=== PATIENT | male | born 1970 | race Caucasian/White ===

== ENCOUNTER 2016-11-17 13:57 | Emergency (ER) | payer MEDICAID ==
[2016-11-17] MEDS ORDERED: DEXAMETHASONE 10 MG/ML VIAL PO STA (17:08)
[2016-11-17] MEDS ORDERED: IPRATROPIUM/ALBUTEROL 3 ML NEB INH STA (17:08)
[2016-11-17] MEDS ORDERED: DEXAMETHASONE 10 MG/ML VIAL ONE (17:09)
[2016-11-17] MEDS ORDERED: CHERRY SYRUP 10 ML UDC PO ONE (17:09)
[2016-11-17] MEDS ORDERED: IPRATROPIUM/ALBUTEROL 3 ML NEB INH ONE (17:18)
[2016-11-17] MEDS ORDERED: OSELTAMIVIR 75 MG CAPSULE PO STA (18:06)
[2016-11-17] MEDS ORDERED: traMADol 50 MG TABLET PO STA (18:06)
[2016-11-17] MEDS ORDERED: OSELTAMIVIR 75 MG CAPSULE PO ONE (18:16)
[2016-11-17] MEDS ORDERED: traMADol 50 MG TABLET PO ONE (18:16)
== END 2016-11-17 18:00 | disposition home or self-care (01) ==
DX: J10.1 Influenza due to other identified influenza virus with other respiratory manifestations (principal); H66.003 Acute suppurative otitis media without spontaneous rupture of ear drum, bilateral; I10 Essential (primary) hypertension; F17.200 Nicotine dependence, unspecified, uncomplicated
CPT/HCPCS: 71020; 87275; 87276; 94640; 99283; 99284; A9270; J7620

== ENCOUNTER 2016-11-18 05:32 | Emergency (ER) | payer MEDICAID ==
[2016-11-18] MEDS ORDERED: HYDROmorphone 1 MG/ML SYRINGE IVP STA ×2 (07:26→09:12)
[2016-11-18] MEDS ORDERED: SODIUM CHLORIDE 0.9% 1,000 ML IV ONE ×2 (07:27→09:13)
[2016-11-18] MEDS ORDERED: KETAMINE 500 MG/10 ML VIAL IVP STA ×2 (07:27→09:12)
[2016-11-18] MEDS ORDERED: HYDROmorphone 1 MG/ML SYRINGE ONE ×2 (07:38→09:16)
[2016-11-18] MEDS ORDERED: KETAMINE 500 MG/10 ML VIAL ONE (07:39)
[2016-11-18] MEDS ORDERED: OSELTAMIVIR 75 MG CAPSULE PO STA (08:57)
[2016-11-18] MEDS ORDERED: OSELTAMIVIR 75 MG CAPSULE PO ONE (09:17)
== END 2016-11-18 09:50 | disposition home or self-care (01) ==
DX: E86.0 Dehydration (principal); G57.72 Causalgia of left lower limb; J10.1 Influenza due to other identified influenza virus with other respiratory manifestations; I10 Essential (primary) hypertension; K21.9 Gastro-esophageal reflux disease without esophagitis; Z87.442 Personal history of urinary calculi; F17.200 Nicotine dependence, unspecified, uncomplicated
CPT/HCPCS: 96374; 96375; 96376; 99283; 99284; A9270

== ENCOUNTER 2016-12-15 12:26 | Emergency (ER) | payer MEDICAID ==
[2016-12-15] MEDS ORDERED: HYDROmorphone 1 MG/ML SYRINGE IVP STA ×3 (13:23→15:21)
[2016-12-15] MEDS ORDERED: KETAMINE 500 MG/10 ML VIAL IVP STA ×2 (13:23→14:18)
[2016-12-15] MEDS ORDERED: SODIUM CHLORIDE 0.9% 1,000 ML IV ONE (13:23)
[2016-12-15] MEDS ORDERED: HYDROmorphone 1 MG/ML SYRINGE ONE ×3 (13:29→15:24)
[2016-12-15] MEDS ORDERED: KETAMINE 500 MG/10 ML VIAL ONE ×2 (13:30→14:30)
== END 2016-12-15 16:12 | disposition home or self-care (01) ==
DX: G90.522 Complex regional pain syndrome I of left lower limb (principal); I10 Essential (primary) hypertension; F17.200 Nicotine dependence, unspecified, uncomplicated
CPT/HCPCS: 96374; 96375; 96376; 99283; 99284; J1170

== ENCOUNTER 2016-12-16 17:37 | Emergency (ER) | payer MEDICAID ==
[2016-12-16] MEDS ORDERED: ACETAMINOPHEN 325 MG TABLET PO STA (18:27)
[2016-12-16] MEDS ORDERED: ACETAMINOPHEN 325 MG TABLET PO ONE (18:34)
== END 2016-12-16 18:40 | disposition home or self-care (01) ==
DX: G90.50 Complex regional pain syndrome I, unspecified (principal); I10 Essential (primary) hypertension; F17.200 Nicotine dependence, unspecified, uncomplicated
CPT/HCPCS: 99282; 99283; A9270

== ENCOUNTER 2016-12-19 | Emergency (ER) | payer MEDICAID | END 2016-12-19 03:03 | disposition home or self-care (01) ==

== ENCOUNTER 2017-03-19 09:21 | Emergency (ER) | payer MEDICAID ==
[2017-03-19 09:34] VITALS: BP 167/100
--- NOTE | 2017-03-19 12:03 | ED Physician Documentation ---
PD HPI LOWER EXT INJURY - Stated complaint Stated Complaint: L LEG INJURY - Chief complaint Chief Complaint: Ext Problem - History obtained from History obtained from: Patient - History of Present Illness PD HPI LOW EXT INJURY LOCATION: Left, Ankle Type of injury: Other (states feels like his achilles is torn again) Where injury occurred: Home Timing - onset: How many weeks ago (several) Timing - duration: Weeks (several) Timing - details: Gradual onset Pain level max: 5 Pain level now: 5 Improved by: Rest Worsened by: Moving, Palpating Associated symptoms: No: Weakness, Numbness, Tingling, Swelling Contributing factors: No: Anticoagulated, Prior ortho surgery, Prosthetic joint , Work related Similar symptoms before: Diagnosis (achilles tendon strain) Recently seen: Not recently seen Review of Systems Constitutional: denies: Fever Nose: denies: Rhinorrhea / runny nose, Congestion Respiratory: denies: Cough GI: denies: Nausea, Vomiting, Diarrhea Skin: denies: Rash Musculoskeletal: denies: Neck pain, Back pain Neurologic: denies: Headache PD PAST MEDICAL HISTORY - Past Medical History Cardiovascular: Hypertension, Other Respiratory: Shortness of breath Neuro: Head injury, Other Endocrine/Autoimmune: None GI: GERD : Kidney stones HEENT: Other Psych: Depression, Anxiety, Other Musculoskeletal: Other Derm: Other - Past Surgical History Past Surgical History: Yes General: Colonoscopy Ortho: Spine surgery Cardiovascular: Cardiac catheterization - Present Medications Home Medications: Ambulatory Orders Medication Instructions Recorded Confirmed Lisinopril 40 mg PO DAILY 09/08/16 12/16/16 Tramadol HCl [Tramadol HCl ER] 300 mg PO DAILY 09/08/16 12/16/16 amLODIPine [Norvasc] 10 mg PO DAILY 09/08/16 12/16/16 Melatonin 1 tab PO DAILY 10/04/16 12/16/16 traMADol [Ultram] 100 mg PO Q6H PRN #20 tablet 10/17/16 12/16/16 Tramadol HCl 50 mg PO Q6H PRN #15 tablet 11/10/16 12/16/16 oxyCODONE [Roxicodone] 5 mg PO Q4-6H PRN #4 tablet 12/15/16 12/16/16 - Allergies Allergies/Adverse Reactions: Allergies Allergy/AdvReac Type Severity Reaction Status Date / Time diphenhydramine Allergy Unknown Verified 12/19/16 02:44 gabapentin Allergy Unknown Verified 12/19/16 02:44 NSAIDS (Non-Steroidal AdvReac Unknown Verified 12/19/16 02:44 Anti-Inflamma - Social History Does the pt smoke?: Yes Smoking Status: Light tobacco smoker Does the pt drink ETOH?: No Does the pt have substance abuse?: No - Immunizations Immunizations are current?: Yes - POLST Patient has POLST: Yes PD ED PE NORMAL - Vitals Vital signs reviewed: Yes - General General: Alert and oriented X 3, No acute distress - Derm Derm: Warm and dry - Extremities Extremities: Other (L achilles - tenderness along the tendon sheath. NVI. normal dorsiflexion and plantar flexion of the foot. negative dahl's test) - Neuro Neuro: Alert and oriented X 3 - Psych Psych: Normal mood, Normal affect Results - Vitals Vitals: Vital Signs - 24 hr 03/19/17 09:30 Temperature 36.6 C Heart Rate 86 Respiratory 18 Rate Blood Pressure 167/100 H O2 Saturation 98 Oxygen O2 Source Room air PD MEDICAL DECISION MAKING - ED course Complexity details: considered differential, d/w patient ED course: Patient is a 46-year-old gentleman who presents to the emergency department complaining of pain in the Achilles tendon. Placed in a walking boot for comfort. We will have him utilize Tylenol at home for pain. He will follow-up with orthopedics for further evaluation and care. No evidence of tendon rupture. Patient counseled regarding signs and symptoms for which I believe and urgent re-evaluation would be necessary. Patient with good understanding of and agreement to plan and is comfortable going home at this time This document was made in part using voice recognition software. While efforts are made to proofread this document, sound alike and grammatical errors may occur. Departure - Departure Disposition: 01 Home, Self Care Clinical Impression: Achilles tendinitis Qualifiers: Laterality: left Qualified Code(s): M76.62 - Achilles tendinitis, left leg Condition: Good Instructions: Achilles Tendonitis Follow-Up: [facility] [Provider Group] - Within 1 week Comments: Wear the boot as needed for comfort. Follow up with orthopedics for re- evaluation Your blood pressure was elevated today on check in to the emergency department. This does not mean that you have hypertension, it is a common phenomenon to check into the emergency department and have elevated blood pressure. I recommend that you see your primary care physician within the week to have it rechecked when you're feeling better.
== END 2017-03-19 12:12 | disposition home or self-care (01) ==
LOC: ED 09:21
DX: M76.62 Achilles tendinitis, left leg (principal); X50.9XXA Other and unspecified overexertion or strenuous movements or postures, initial encounter; Y92.019 Unspecified place in single-family (private) house as the place of occurrence of the external cause; I10 Essential (primary) hypertension; K21.9 Gastro-esophageal reflux disease without esophagitis; Z87.442 Personal history of urinary calculi; F17.200 Nicotine dependence, unspecified, uncomplicated
CPT/HCPCS: 99282; 99283

== ENCOUNTER 2017-08-03 10:12 | Emergency (ER) | payer MEDICAID ==
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
[2017-08-03 14:03] VITALS: BP 142/79
--- NOTE | 2017-08-03 14:12 | XRAY Preliminary Report ---
Exam: XR Chest 2 View PA/LAT IMPRESSION: No focal consolidation. [facility] SITE ID: [id number]
--- NOTE | 2017-08-03 14:15 | XRAY Preliminary Report ---
Exam: XR Lumbar Spine 2 View IMPRESSION: 1. Mild anterior wedging of the T12 and L1 vertebral bodies. 2. Mild degenerative disk disease at L4-L5. [facility] SITE ID: [id number]
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
== END 2017-08-03 14:03 | disposition home or self-care (01) ==
LOC: ED 10:12
DX: R07.9 Chest pain, unspecified (principal); M54.5 Low back pain; W22.09XA Striking against other stationary object, initial encounter; Y93.55 Activity, bike riding; Y92.410 Unspecified street and highway as the place of occurrence of the external cause; Z87.891 Personal history of nicotine dependence
CPT/HCPCS: 71020; 72100; 93005; 99283

== ENCOUNTER 2017-10-14 11:21 | Outpatient (CLI) | payer MEDICAID | END 2017-10-14 11:22 | disposition EMS.NT | LOC: EMS 11:21 | PROVIDERS: ATTEND Surgery | DX: Z03.89 Encounter for observation for other suspected diseases and conditions ruled out (principal) ==

== ENCOUNTER 2017-12-28 07:34 | Outpatient (CLI) | payer MEDICAID | END 2017-12-28 07:35 | disposition critical access hospital (66) | LOC: EMS 07:34 | PROVIDERS: ATTEND Surgery | DX: M54.5 Low back pain (principal); M25.512 Pain in left shoulder; V13.4XXA Pedal cycle driver injured in collision with car, pick-up truck or van in traffic accident, initial encounter; Y93.55 Activity, bike riding; Y92.413 State road as the place of occurrence of the external cause | CPT/HCPCS: A0425; A0429 ==

== ENCOUNTER 2017-12-28 07:51 | Emergency (ER) | payer MEDICAID ==
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
[2017-12-28 08:03] VITALS: BP 158/97
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
--- NOTE | 2017-12-28 08:49 | XRAY Preliminary Report ---
Exam: XR HIP W/PELVIS 2-3V LT IMPRESSION: Normal pelvis and left hip radiography. [facility] SITE ID: [id number]
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
== END 2017-12-28 10:22 | disposition home or self-care (01) ==
LOC: EDUNIT# → ED 07:51
DX: S20.212A Contusion of left front wall of thorax, initial encounter (principal); S70.02XA Contusion of left hip, initial encounter; V03.10XA Pedestrian on foot injured in collision with car, pick-up truck or van in traffic accident, initial encounter; Y92.488 Other paved roadways as the place of occurrence of the external cause; I10 Essential (primary) hypertension; K21.9 Gastro-esophageal reflux disease without esophagitis; Z87.442 Personal history of urinary calculi; Z87.891 Personal history of nicotine dependence
CPT/HCPCS: 71046; 99283

== ENCOUNTER 2018-01-04 15:15 | Emergency (ER) | payer MEDICAID ==
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
[2018-01-04] MEDS ORDERED: METHOCARBAMOL 500 MG TABLET PO STA (16:37)
[2018-01-04] MEDS ORDERED: DEXAMETHASONE 10 MG/ML VIAL PO STA (16:37)
[2018-01-04] MEDS ORDERED: CHERRY SYRUP 10 ML UDC PO ONE (16:55)
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
[2018-01-04 17:52] VITALS: BP 131/93
== END 2018-01-04 18:15 | disposition home or self-care (01) ==
LOC: ED 15:15
DX: M54.30 Sciatica, unspecified side (principal); I10 Essential (primary) hypertension
CPT/HCPCS: 72131; 99283; A9270

== ENCOUNTER 2018-03-01 17:44 | Emergency (ER) | payer MEDICAID ==
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
[2018-03-01 18:28] LABS: BASOPHILS % (AUTO) 0.3 %; EOSINOPHILS % (AUTO) 0.2 %; HGB - HEMOGLOBIN 15.9 g/dL (14.0-18.0); LYMPHOCYTES # (AUTO) 1.8 10^3/uL (1.5-3.5); LYMPHOCYTES % (AUTO) 18.5 %; MEAN CORPUSCULAR HEMOGLOBIN 30.4 pg (27.0-31.0); MEAN CORPUSCULAR HGB CONC 34.1 g/dL (32.0-36.0); MEAN CORPUSCULAR VOLUME 89.3 fL (80.0-94.0); MEAN PLATELET VOLUME 8.1 fL (7.4-11.4); MONOCYTES # (AUTO) 0.4 10^3/uL (0.0-1.0); MONOCYTES % (AUTO) 4.4 %; NEUTROPHILS # (AUTO) 7.5 10^3/uL (1.5-6.6); NEUTROPHILS % (AUTO) 76.6 %; PLT - PLATELET COUNT 183 10^3/uL (130-450); RED BLOOD COUNT 5.24 10^6/uL (4.70-6.10); RED CELL DISTRIBUTION WIDTH 12.8 % (12.0-15.0); WHITE BLOOD COUNT 9.8 x10^3/uL (4.8-10.8)
[2018-03-01] MEDS ORDERED: DEXAMETHASONE 10 MG/ML VIAL IVP STA (18:33)
[2018-03-01 18:39] LABS: ALBUMIN 4.6 g/dL (3.2-5.5); ALBUMIN/GLOBULIN RATIO 1.6 (1.0-2.2); BILIRUBIN,TOTAL 0.7 mg/dL (0.2-1.0); CALCIUM 9.1 mg/dL (8.5-10.3); CREATININE 0.7 mg/dL (0.6-1.2); TOTAL PROTEIN 7.5 g/dL (6.7-8.2)
[2018-03-01] MEDS ORDERED: SODIUM CHLORIDE 0.9% 1,000 ML IV ONE (19:40)
[2018-03-01] MEDS ORDERED: ONDANSETRON 4 MG/2 ML VIAL IVP STA (20:04)
[2018-03-01 20:21] VITALS: BP 138/87
[2018-03-01] MEDS ORDERED: KETOROLAC 60 MG/2 ML VIAL IVP STA (20:23)
== END 2018-03-01 20:42 | disposition short-term general hospital (02) ==
LOC: ED 17:44
DX: G83.4 Cauda equina syndrome (principal); I10 Essential (primary) hypertension
CPT/HCPCS: 36415; 51798; 80053; 83690; 85025; 96361; 96374; 96375; 99283; 99284

== ENCOUNTER 2018-03-01 20:43 | Outpatient (CLI) | payer MEDICAID | END 2018-03-01 20:44 | disposition short-term general hospital (02) | LOC: EMS 20:43 | PROVIDERS: ATTEND Surgery | DX: R15.9 Full incontinence of feces (principal); R32 Unspecified urinary incontinence; M54.5 Low back pain | CPT/HCPCS: A0170; A0425; A0426 ==

== ENCOUNTER 2018-03-27 10:52 | Emergency (ER) | payer MEDICAID ==
[2018-03-27 11:00] VITALS: BP 133/93
[2018-03-27 11:38] LABS: BASOPHILS % (AUTO) 0.2 %; EOSINOPHILS # (AUTO) 0.1 10^3/uL (0.0-0.7); EOSINOPHILS % (AUTO) 2.2 %; HGB - HEMOGLOBIN 16.3 g/dL (14.0-18.0); LYMPHOCYTES # (AUTO) 0.5 10^3/uL (1.5-3.5); LYMPHOCYTES % (AUTO) 10.1 %; MEAN CORPUSCULAR HEMOGLOBIN 30.8 pg (27.0-31.0); MEAN CORPUSCULAR HGB CONC 34.3 g/dL (32.0-36.0); MEAN CORPUSCULAR VOLUME 89.6 fL (80.0-94.0); MEAN PLATELET VOLUME 8.5 fL (7.4-11.4); MONOCYTES # (AUTO) 0.6 10^3/uL (0.0-1.0); MONOCYTES % (AUTO) 11.6 %; NEUTROPHILS % (AUTO) 75.9 %; PLT - PLATELET COUNT 133 10^3/uL (130-450); RED CELL DISTRIBUTION WIDTH 12.5 % (12.0-15.0); WHITE BLOOD COUNT 5.2 x10^3/uL (4.8-10.8)
[2018-03-27 11:44] LABS: BILIRUBIN,URINE NEGATIVE (NEGATIVE); GLUCOSE, URINE (UA) NEGATIVE (NEGATIVE); KETONES,URINE (UA) NEGATIVE (NEGATIVE); LEUKOCYTE ESTERASE, URINE NEGATIVE (NEGATIVE); NITRITE,URINE NEGATIVE (NEGATIVE); OCCULT BLOOD,URINE NEGATIVE (NEGATIVE); PROTEIN,URINE NEGATIVE (NEGATIVE); UROBILINOGEN,URINE 0.2 (NORMAL) E.U./dL (NORMAL)
[2018-03-27 11:45] LABS: CLARITY,URINE CLEAR (CLEAR)
[2018-03-27 11:48] LABS: ALBUMIN 4.2 g/dL (3.2-5.5); ALBUMIN/GLOBULIN RATIO 1.4 (1.0-2.2); BILIRUBIN,TOTAL 0.9 mg/dL (0.2-1.0); CALCIUM 8.9 mg/dL (8.5-10.3); CREATININE 0.8 mg/dL (0.6-1.2); TOTAL PROTEIN 7.3 g/dL (6.7-8.2)
[2018-03-27] MEDS ORDERED: cefTRIAXone 1 GM in SODIUM CHLORIDE 0.9% MINIBAG 100 ML IV STA (11:58)
[2018-03-27] MEDS ORDERED: SODIUM CHLORIDE 0.9% 1,000 ML IV ONE (11:58)
[2018-03-27] MEDS ORDERED: DEXAMETHASONE 10 MG/ML VIAL IVP STA (11:58)
--- NOTE | 2018-03-27 12:02 | ED Physician Documentation ---
PD HPI URI - Stated complaint Stated Complaint: FEVER,BODY ACHE,COUGH - Chief complaint Chief Complaint: Neuro - History obtained from History obtained from: Patient, Family - History of Present Illness Timing - onset: How many days ago (3) Timing duration: Days (3) Timing details: Gradual onset, Still present Associated symptoms: Chills, Sweats, Ear pain, Nasal congestion, Rhinorrhea, Productive cough Contributing factors: Sick contact Improves by: Rest, Medication Worsened by: Activity Similar symptoms before: Diagnosis (OM) Recently seen: Other - Additional information Additional information: 47-year-old male with a history of CRPS has had a recent trip down to [facility] for evaluation of urinary and fecal incontinence which has nearly resolved. Over the past 3 days he has developed upper respiratory symptoms including a cough nasal congestion production of phlegm and left ear pain. Review of Systems Constitutional: reports: Chills, Sweats. denies: Fever Eyes: denies: Decreased vision Ears: reports: Ear pain Nose: reports: Rhinorrhea / runny nose, Congestion Throat: reports: Sore throat Cardiac: denies: Chest pain / pressure, Palpitations Respiratory: reports: Cough. denies: Dyspnea GI: denies: Abdominal Pain, Nausea, Vomiting : denies: Dysuria PD PAST MEDICAL HISTORY - Past Medical History Past Medical History: Yes Cardiovascular: Hypertension, Other Respiratory: Shortness of breath Endocrine/Autoimmune: None GI: GERD : Kidney stones HEENT: Other Psych: Depression, Anxiety, Other Musculoskeletal: Other Derm: Other - Past Surgical History Past Surgical History: Yes General: Colonoscopy Ortho: Spine surgery Cardiovascular: Cardiac catheterization - Present Medications Home Medications: Ambulatory Orders Medication Instructions Recorded Confirmed Azithromycin [Zithromax] 250 mg PO DAILY #6 tablet 03/27/18 Cholecalciferol [Vitamin D3] unit 03/27/18 Hydrochlorothiazide mg PO 03/27/18 Maoi 03/27/18 - Allergies Allergies/Adverse Reactions: Allergies Allergy/AdvReac Type Severity Reaction Status Date / Time diphenhydramine Allergy Unknown Verified 03/27/18 11:00 gabapentin Allergy Unknown Verified 03/27/18 11:00 NSAIDS (Non-Steroidal AdvReac Unknown Verified 03/27/18 11:00 Anti-Inflamma - Social History Does the pt smoke?: No Smoking Status: Never smoker Does the pt drink ETOH?: No Does the pt have substance abuse?: No - Immunizations Immunizations are current?: Yes - POLST Patient has POLST: Yes PD ED PE NORMAL - Vitals Vital signs reviewed: Yes (hypertensive ) - General General: Alert and oriented X 3, No acute distress, Well developed/nourished - HEENT HEENT: Atraumatic, PERRL, EOMI, Other (The right TM is minimally inflammed and the left is inflammed with rounding of the umbo. ) - Neck Neck: Supple, no meningeal sign, No bony TTP - Cardiac Cardiac: RRR, No murmur - Respiratory Respiratory: No respiratory distress, Clear bilaterally - Abdomen Abdomen: Soft, Non tender - Back Back: No CVA TTP, No spinal TTP - Derm Derm: Normal color, Warm and dry, No rash - Extremities Extremities: No deformity, No edema - Neuro Neuro: No motor deficit, No sensory deficit Eye Opening: Spontaneous Motor: Obeys Commands Verbal: Oriented GCS Score: 15 - Psych Psych: Normal mood, Normal affect Results - Vitals Vitals: Vital Signs - 24 hr 03/27/18 10:54 Temperature 37.4 C Heart Rate 37 L Respiratory 18 Rate Blood Pressure 133/93 H O2 Saturation 99 Oxygen O2 Source Room air - Labs Labs: Laboratory Tests 03/27/18 03/27/18 03/27/18 11:30 11:30 11:30 WBC 5.2 RBC 5.30 Hgb 16.3 Hct 47.5 MCV 89.6 MCH 30.8 MCHC 34.3 RDW 12.5 Plt Count 133 MPV 8.5 Neut # 4.0 Lymph # 0.5 L Bland # 0.6 Eos # 0.1 Baso # 0.0 Absolute Nucleated RBC 0.00 Nucleated RBC % 0.0 Sodium 133 L Potassium 3.8 Chloride 101 Carbon Dioxide 25 Anion Gap 7.0 BUN 14 Creatinine 0.8 Estimated GFR (MDRD) 103 Glucose 99 Calcium 8.9 Total Bilirubin 0.9 AST 29 ALT 30 Alkaline Phosphatase 62 Total Protein 7.3 Albumin 4.2 Globulin 3.1 Albumin/Globulin Ratio 1.4 Lipase 32 Urine Color YELLOW Urine Clarity CLEAR Urine pH 7.0 Ur Specific [place] 1.015 Urine Protein NEGATIVE Urine Glucose (UA) NEGATIVE Urine Ketones NEGATIVE Urine Occult Blood NEGATIVE Urine Nitrite NEGATIVE Urine Bilirubin NEGATIVE Urine Urobilinogen 0.2 (NORMAL) Ur Leukocyte Esterase NEGATIVE Ur Microscopic Review NOT INDICATED Urine Culture Comments NOT INDICATED Procedures - IVC sono (time) 1200 Bedside IVC sono: IVC measures (cm) (1.21), IVC collapsed c insp (cm) (complete) , Dehydration (est 1 liter deficit) PD MEDICAL DECISION MAKING - ED course Complexity details: reviewed old records, reviewed results, re-evaluated patient , considered differential, d/w patient ED course: 47-year-old male with a history of CRPS is developed an upper respiratory tract infection which he has had previously and which usually does cause a problem with his CRPS. He has otitis on examination and he is treated aggressively for this with the use of dexamethasone and Rocephin. He also appears mildly dehydrated and is given intravenous saline. Departure - Departure Disposition: 01 Home, Self Care Clinical Impression: Dehydration Otitis media Qualifiers: Otitis media type: suppurative Chronicity: acute Laterality: left Recurrence: not specified as recurrent Spontaneous tympanic membrane rupture: without spontaneous rupture Qualified Code(s): H66.002 - Acute suppurative otitis media without spontaneous rupture of ear drum, left ear Condition: Stable Instructions: ED Otitis Media Acute Adult, ED Dehydration Follow-Up: Your, doctor [Other] Prescriptions: Azithromycin [Zithromax] 250 mg PO DAILY #6 tablet
== END 2018-03-27 13:16 | disposition home or self-care (01) ==
LOC: ED 10:52
DX: H66.002 Acute suppurative otitis media without spontaneous rupture of ear drum, left ear (principal); J06.9 Acute upper respiratory infection, unspecified; E86.0 Dehydration; I10 Essential (primary) hypertension; G90.50 Complex regional pain syndrome I, unspecified
CPT/HCPCS: 36415; 80053; 81001; 81003; 83690; 85025; 87086; 96365; 96375; 99283; 99284

== ENCOUNTER 2018-06-21 14:07 | Emergency (ER) | payer MEDICAID | END 2018-06-21 14:45 | disposition left against medical advice (07) | LOC: ED 14:07 | DX: Z53.21 Procedure and treatment not carried out due to patient leaving prior to being seen by health care provider (principal) ==

== ENCOUNTER 2018-06-22 08:00 | Emergency (ER) | payer MEDICAID ==
[2018-06-22] MEDS ORDERED: LIDOCAINE PATCH 5% TOP PRN (08:25)
[2018-06-22] MEDS ORDERED: ACETAMINOPHEN 325 MG TABLET PO STA (08:25)
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
--- NOTE | 2018-06-22 10:10 | Ultrasound Report ---
Procedure Date: 06/22/2018 Accession Number: [id number] / [id number] Procedure: US - Duplex Ext Veins Right CPT Code: FULL RESULT: EXAM: Duplex Ext Veins Right DATE: 06/22/2018 9:53 AM CLINICAL HISTORY: calf and popliteal pain slight swelling COMPARISON: None. TECHNIQUE: Real-time sonographic vascular imaging was performed by the blacksmith assistant through the lower extremities utilizing both color-flow and Doppler spectral analysis. Multiple warehouse representative static images were saved for review. FINDINGS: Right: Common Femoral Vein (CFV): Normal. [Profunda Femoral Vein (PFV): Normal. Superficial Femoral Vein (SFV) Prox: Normal. Superficial Femoral Vein (SFV) Mid: Normal. Superficial Femoral Vein (SFV) Dist: Normal. Popliteal Vein: Normal. Posterior Tibial Veins: Normal. Peroneal Veins: Normal. IMPRESSION: Normal. No evidence for deep venous thrombosis. RADIA
[2018-06-22 10:43] VITALS: BP 128/74
== END 2018-06-22 10:43 | disposition home or self-care (01) ==
LOC: ED 08:00
DX: S86.811A Strain of other muscle(s) and tendon(s) at lower leg level, right leg, initial encounter (principal); X58.XXXA Exposure to other specified factors, initial encounter; I10 Essential (primary) hypertension; F43.10 Post-traumatic stress disorder, unspecified
CPT/HCPCS: 93971; 99283; A9270

== ENCOUNTER 2018-11-17 07:25 | Outpatient (CLI) | payer OTHER ==
--- NOTE | 2018-11-17 09:38 | Ultrasound Report ---
Reason: ABNORMAL LIVER FUNCTION TESTS Procedure Date: 11/17/2018 Accession Number: [id number] / [id number] Procedure: US - Abdomen Limited CPT Code: FULL RESULT: EXAM: ABDOMEN ULTRASOUND LIMITED, RUQ EXAM DATE: 11/17/2018 08:40 AM. CLINICAL HISTORY: ABNORMAL LIVER FUNCTION TESTS. COMPARISON: None. TECHNIQUE: Real-time scanning was performed with static images obtained. FINDINGS: Liver: Echogenic heterogeneous echotexture with geographic relatively hypoechoic areas around the gallbladder fossa consistent with focal fatty sparing in the setting of hepatic steatosis. Right lobe measures at least 14.6 cm. Main portal vein flow: Hepatopetal. Gallbladder: Normal. No stones, wall thickening, or sonographic Mcmahan's sign. Biliary System: CBD measures 4 mm. No intrahepatic or extrahepatic ductal dilatation. Other: Right kidney measures 12.3 cm in maximal sagittal dimension and demonstrates no mel hydronephrosis, calculi or suspicious mass. IMPRESSION: Hepatic steatosis. RADIA
== END 2018-11-17 07:26 | disposition home or self-care (01) ==
LOC: DI 07:25
PROVIDERS: ATTEND Internal Medicine
DX: K76.0 Fatty (change of) liver, not elsewhere classified (principal)
CPT/HCPCS: 76705

== ENCOUNTER 2019-04-10 08:32 | Emergency (ER) | payer OTHER ==
[2019-04-10 08:40] VITALS: BP 151/95
[2019-04-10] MEDS ORDERED: KETOROLAC 30 MG/ML VIAL IVP STA (08:52)
[2019-04-10] MEDS ORDERED: SODIUM CHLORIDE 0.9% 1,000 ML IV ONE (08:52)
[2019-04-10] MEDS ORDERED: PROCHLORPERAZINE 10 MG/2 ML VIAL IVP STA (08:55)
[2019-04-10] MEDS ORDERED: DEXAMETHASONE 10 MG/ML VIAL IVP STA (08:57)
[2019-04-10] MEDS ORDERED: KETAMINE 500 MG/10 ML VIAL IVP STA (08:58)
--- NOTE | 2019-04-10 09:01 | ED Physician Documentation ---
PD HPI HEADACHE - Stated complaint Stated Complaint: HEADACHE - Chief complaint Chief Complaint: Neuro - History obtained from History obtained from: Patient, Family - History of Present Illness Timing - onset: Enter time (299), Today Timing - onset during: Sleep Timing - duration: Hours Timing - details: Abrupt onset, Still present Location: Front Quality: Throbbing Associated symptoms: Nausea, Vision changes. No: Fever, Stiff neck, Vomiting, Weakness, Numbness, Syncope, Seizure, Eye pain Improved by: Rest, Dark room Worsened by: Light, Noise, Moving Contributing factors: No: Anticoagulated Similar symptoms before: Diagnosis (migraine) Recently seen: Not recently seen - Additional information Additional information: 48-year-old male well known to this emergency department for a history of complex regional pain syndrome has had excellent relief of his complex regional pain syndrome symptoms for the past year after receiving ketamine infusions in the emergency department numerous times. He states his symptoms are dramatically improved and that he is only now beginning to have some recurrence of symptoms in his legs and he is scheduled to go into the ketamine infusion clinic at the pain clinic. This morning he awoke at 3:00 in the morning with a headache, ringing in his ears, nausea and vision changes to include blurring of his vision. He has had all the symptoms previously with migraine headache and he has not had migraines for the past 5 years. Review of Systems Constitutional: denies: Fever, Chills, Fatigue Eyes: reports: Photophobia. denies: Decreased vision Ears: reports: Tinnitus/ringing. denies: Ear pain Nose: denies: Rhinorrhea / runny nose, Congestion Throat: denies: Sore throat Cardiac: denies: Chest pain / pressure, Palpitations Respiratory: denies: Dyspnea, Cough GI: reports: Nausea. denies: Abdominal Pain, Vomiting : denies: Dysuria, Frequency PD PAST MEDICAL HISTORY - Past Medical History Cardiovascular: Hypertension, Other Respiratory: Shortness of breath Endocrine/Autoimmune: None GI: GERD : Kidney stones HEENT: Other Psych: Depression, Anxiety, Other Musculoskeletal: Other Derm: Other - Past Surgical History Past Surgical History: Yes General: Colonoscopy Ortho: Spine surgery Cardiovascular: Cardiac catheterization - Present Medications Home Medications: Ambulatory Orders Medication Instructions Recorded Confirmed Azithromycin [Zithromax] 250 mg PO DAILY #6 tablet 03/27/18 Cholecalciferol [Vitamin D3] unit 03/27/18 Hydrochlorothiazide mg PO 03/27/18 Maoi 03/27/18 - Allergies Allergies/Adverse Reactions: Allergies Allergy/AdvReac Type Severity Reaction Status Date / Time diphenhydramine Allergy Unknown Verified 04/10/19 08:40 gabapentin Allergy Unknown Verified 04/10/19 08:40 NSAIDS (Non-Steroidal AdvReac Unknown Verified 04/10/19 08:40 Anti-Inflamma - Social History Does the pt smoke?: No Smoking Status: Never smoker Does the pt drink ETOH?: No Does the pt have substance abuse?: No - Immunizations Immunizations are current?: Yes - POLST Patient has POLST: Yes PD ED PE NORMAL - Vitals Vital signs reviewed: Yes (hypertensive) - General General: Alert and oriented X 3, Well developed/nourished, Other (wearing dark glasses in a darkened room ) - HEENT HEENT: Atraumatic, PERRL, EOMI, Ears normal, Moist mucous membranes, Pharynx benign - Neck Neck: Supple, no meningeal sign, No bony TTP - Cardiac Cardiac: RRR, Other (2/6 holosystolic murmer at LSB) - Respiratory Respiratory: No respiratory distress, Clear bilaterally - Abdomen Abdomen: Soft, Non tender - Back Back: No CVA TTP, No spinal TTP - Derm Derm: Normal color, Warm and dry, No rash - Extremities Extremities: No deformity, No edema - Neuro Neuro: Alert and oriented X 3, commercial finance analyst 2-12 intact, No motor deficit, No sensory deficit, Normal speech Eye Opening: Spontaneous Motor: Obeys Commands Verbal: Oriented GCS Score: 15 - Psych Psych: Normal mood, Normal affect Results - Vitals Vitals: Vital Signs - 24 hr 04/10/19 08:35 Temperature 36.7 C Heart Rate 84 Respiratory 18 Rate Blood Pressure 151/95 H O2 Saturation 98 Oxygen O2 Source Room air PD MEDICAL DECISION MAKING - ED course Complexity details: reviewed old records, reviewed results, re-evaluated patient, considered differential, d/w patient, d/w family ED course: 48-year-old male with a migraine headache and a prior history of complex regional pain syndrome has symptoms typical for him for migraine. In the past he has had issues with intravenous Benadryl and this is left out of the migraine cocktail this morning. He is administered Compazine, Toradol, dexamethasone, ketamine and 1 L of saline. Departure - Departure Disposition: Home, Self Care Clinical Impression: Migraine Qualifiers: Migraine type: without aura Status migrainosus presence: without status migrainosus Intractability: not intractable Qualified Code(s): G43.009 - Migraine without aura, not intractable, without status migrainosus Condition: Stable Instructions: ED Headache Migraine Follow-Up: Mathieu Souza MD [Primary Care Provider] -
== END 2019-04-10 10:25 | disposition home or self-care (01) ==
LOC: ED 08:32
DX: G43.009 Migraine without aura, not intractable, without status migrainosus (principal); I10 Essential (primary) hypertension
CPT/HCPCS: 96361; 96374; 99283

== ENCOUNTER 2019-08-03 08:45 | Outpatient (CLI) | payer OTHER | END 2019-08-03 08:46 | disposition short-term general hospital (02) | LOC: EMS 08:45 | PROVIDERS: ATTEND Surgery | DX: M54.5 Low back pain (principal); R32 Unspecified urinary incontinence | CPT/HCPCS: A0425; A0427 ==

== ENCOUNTER 2020-11-06 15:02 | Outpatient (CLI) | payer OTHER ==
--- NOTE | 2020-11-06 16:55 | Ultrasound Report ---
PROCEDURE: Testicle INDICATIONS: GROIN MASS TECHNIQUE: Real-time scanning was performed of the scrotum and testicles, with image documentation. Color and p ulse Doppler interrogation was performed of both testicles. COMPARISON: None. FINDINGS: Right: Testicle is normal in size at 5.6 x 3.1 x 3.4 cm, and homogenous in echotexture. Epididymis is normal in overall size and morphology, noting small cysts at the epididymal tail measuring 8 x 6 x 8 mm. Overlying scrotal skin is normal in thickness. No varicocele. Small hydrocele is present. Left: Testicle is normal in size at 5.4 x 3.0 x 3.1 cm, and homogeneous in echotexture. Epididymis is normal in overall size and morphology. No hydrocele or varicoceles. Overlying scrotal skin is no rmal in thickness. Doppler: Color and pulse Doppler demonstrate normal and symmetric arterial flow in both testicles. IMPRESSION: 1. Left epididymal cysts. 2. Small right hydrocele. 3. No abnormality at the area of palpable concern. Reviewed by: Eugenie Ramos MD on 11/06/2020 4:54 PM PST Approved by: Eugenie Ramos MD on 11/06/2020 4:54 PM PST Station ID: [id number]
== END 2020-11-06 15:03 | disposition home or self-care (01) ==
LOC: DI 15:02
PROVIDERS: ATTEND Nurse Practitioner Family
DX: N50.3 Cyst of epididymis (principal); N43.3 Hydrocele, unspecified

== ENCOUNTER 2022-04-10 07:24 | Outpatient (CLI) | payer OTHER, MEDICAID | END 2022-04-10 07:25 | disposition home or self-care (01) | LOC: LAB.N 07:24 | PROVIDERS: ATTEND Family Medicine | DX: I10 Essential (primary) hypertension (principal); Z53.9 Procedure and treatment not carried out, unspecified reason | CPT/HCPCS: 36415; 80053; 80061; 83721; 84443; 85025 ==

== ENCOUNTER 2022-05-10 06:37 | Emergency (ER) | payer MEDICAID, OTHER ==
--- NOTE | 2022-05-10 07:55 | ED Physician Documentation ---
PD HPI DYSPNEA - Stated complaint Stated Complaint: SOA - Chief complaint Chief Complaint: Resp - Additional information Additional information: Patient is a 51-year-old male presenting to the emergency department with complaint of shortness of breath x1 month. Past medical significant for hypertension, gastric reflux, complex regional pain syndrome. Also reports is a regular vapor. Reports 1 month of chest congestion, intermittent fever and cough. States has had a home COVID test that is negative. Reports yesterday woke up with significant chest congestion and shortness of breath. Reports productive sputum. Review of Systems Ten Systems: 10 systems reviewed and negative Constitutional: reports: Fever Eyes: denies: Loss of vision Ears: denies: Loss of hearing Nose: denies: Rhinorrhea / runny nose Cardiac: denies: Chest pain / pressure Respiratory: reports: Dyspnea, Cough. denies: Hemoptysis, Wheezing GI: denies: Abdominal Pain, Nausea, Vomiting PD PAST MEDICAL HISTORY - Past Medical History Cardiovascular: Hypertension, Other Respiratory: Shortness of breath Endocrine/Autoimmune: None GI: GERD : Kidney stones HEENT: Other Psych: Depression, Anxiety, Other Musculoskeletal: Other Derm: Other - Past Surgical History Past Surgical History: Yes General: Colonoscopy Ortho: Spine surgery Cardiovascular: Cardiac catheterization - Present Medications Home Medications: Ambulatory Orders Medication Instructions Recorded Confirmed Azithromycin [Zithromax] 250 mg PO DAILY #6 tablet 03/27/18 Cholecalciferol [Vitamin D3] unit 03/27/18 Maoi 03/27/18 hydroCHLOROthiazide mg PO 03/27/18 [Hydrochlorothiazide] Albuterol Sulfate [Proair Hfa 1 - 2 puffs INH Q4H PRN #1 gm 05/10/22 Inhaler] Oxymetazoline HCl [Afrin] 15 ml NS Q6HR #15 ml 05/10/22 guaiFENesin [Chest Congestion 100 mg PO DAILY #50 ml 05/10/22 Relief] predniSONE [Prednisone] 50 mg PO DAILY #5 tablet 05/10/22 - Allergies Allergies/Adverse Reactions: Allergies Allergy/AdvReac Type Severity Reaction Status Date / Time diphenhydramine Allergy Unknown Verified 05/10/22 06:51 gabapentin Allergy Unknown Verified 05/10/22 06:51 NSAIDS (Non-Steroidal AdvReac Unknown Verified 05/10/22 06:51 Anti-Inflamma - Social History Does the pt smoke?: No Smoking Status: Never smoker Does the pt drink ETOH?: No Does the pt have substance abuse?: No - Immunizations Immunizations are current?: Yes - POLST Patient has POLST: Yes PD ED PE NORMAL - Vitals Vital signs reviewed: Yes (WNL) - General General: Alert and oriented X 3 - HEENT HEENT: Atraumatic, PERRL, Other (Rhinorrhea, upper airway congestion.) - Neck Neck: Supple, no meningeal sign - Cardiac Cardiac: RRR - Respiratory Respiratory: No respiratory distress, Other (Faint end expiratory wheezes.) - Abdomen Abdomen: Soft - Male Male : Deferred - Rectal Rectal: Deferred Results - Vitals Vitals: Vital Signs - 24 hr 05/10/22 05/10/22 06:46 08:15 Temperature 36.6 C Heart Rate 88 74 Respiratory 18 16 Rate Blood Pressure 158/101 H O2 Saturation 98 Oxygen O2 Source Room air - EKG (time done) 0801 Rate: Rate (enter#) (65) Rhythm: NSR [place]: Normal Intervals: Normal MA QRS: Normal Ischemia: Normal ST segments - Labs Labs: Laboratory Tests 05/10/22 05/10/22 05/10/22 08:33 08:33 08:33 WBC 7.5 RBC 5.04 Hgb 15.0 Hct 44.1 MCV 87.5 MCH 29.8 MCHC 34.0 RDW 12.2 Plt Count 147 MPV 9.8 Neut # (Auto) 5.2 Lymph # (Auto) 1.5 Mcminn # (Auto) 0.6 Eos # (Auto) 0.1 Baso # (Auto) 0.0 Absolute Nucleated RBC 0.00 Nucleated RBC % 0.0 Sodium 136 Potassium 3.6 Chloride 98 L Carbon Dioxide 27 Anion Gap 11.0 BUN 12 Creatinine 0.8 Estimated GFR (MDRD) 101 Glucose 171 H Calcium 9.2 Total Bilirubin 0.4 AST 38 ALT 64 H Alkaline Phosphatase 57 Troponin I High Sens 8.8 B-Natriuretic Peptide Total Protein 7.2 Albumin 4.0 Globulin 3.2 Albumin/Globulin Ratio 1.3 Lipase 27 Nasal Adenovirus (PCR) Nasal B. parapertussis DNA (PCR) Nasal Coronavir 229E PCR Nasal Coronavir HKU1 PCR Nasal Coronavir NL63 PCR Nasal Coronavir OC43 PCR Nasal Enterovir/Rhinovir PCR Nasal Influenza B PCR Nasal Influenza A PCR Nasal Parainfluen 1 PCR Nasal Parainfluen 2 PCR Nasal Parainfluen 3 PCR Nasal Parainfluen 4 PCR Nasal RSV (PCR) Nasal B.pertussis DNA PCR Nasal C.pneumoniae (PCR) Vic Human Metapneumo PCR Nasal M.pneumoniae (PCR) Nasal SARS-CoV-2 (PCR) 05/10/22 05/10/22 08:33 08:54 WBC RBC Hgb Hct MCV MCH MCHC RDW Plt Count MPV Neut # (Auto) Lymph # (Auto) Mcminn # (Auto) Eos # (Auto) Baso # (Auto) Absolute Nucleated RBC Nucleated RBC % Sodium Potassium Chloride Carbon Dioxide Anion Gap BUN Creatinine Estimated GFR (MDRD) Glucose Calcium Total Bilirubin AST ALT Alkaline Phosphatase Troponin I High Sens B-Natriuretic Peptide 33 Total Protein Albumin Globulin Albumin/Globulin Ratio Lipase Nasal Adenovirus (PCR) NOT DETECTED Nasal B. parapertussis DNA (PCR) NOT DETECTED Nasal Coronavir 229E PCR NOT DETECTED Nasal Coronavir HKU1 PCR NOT DETECTED Nasal Coronavir NL63 PCR NOT DETECTED Nasal Coronavir OC43 PCR NOT DETECTED Nasal Enterovir/Rhinovir PCR NOT DETECTED Nasal Influenza B PCR NOT DETECTED Nasal Influenza A PCR NOT DETECTED Nasal Parainfluen 1 PCR NOT DETECTED Nasal Parainfluen 2 PCR NOT DETECTED Nasal Parainfluen 3 PCR NOT DETECTED Nasal Parainfluen 4 PCR NOT DETECTED Nasal RSV (PCR) NOT DETECTED Nasal B.pertussis DNA PCR NOT DETECTED Nasal C.pneumoniae (PCR) NOT DETECTED Vic Human Metapneumo PCR NOT DETECTED Nasal M.pneumoniae (PCR) NOT DETECTED Nasal SARS-CoV-2 (PCR) DETECTED A PD MEDICAL DECISION MAKING - ED course Complexity details: reviewed results, d/w patient ED course: Patient is a 51-year-old male presenting with 1 month history of shortness of breath with worsening cough and congestion. Afebrile, he medically stable on arrival to the emergency department. Clear aeration in all lung lim but did have upper airway congestion. Given Decadron, breathing treatment as he does have a history of vaping. Additionally given Zyrtec and oxymetazoline for sy mptomatic management. EKG as outlined above negative for indications of acute cardiac ischemia or dysrhythmia. Labs obtained generally within normal limits or nonactionable. Chest x-ray nonacute. COVID-19 screening test positive. Monitored in the emergency department for several hours, on reevaluation found to be resting comfortably and in no acute distress. Patient's symptoms are outside of the window for paxlovid. Discharged with albuterol, course of prednisone, Mucinex, Oxymetazoline for symptomatic management. Final clinical impression, COVID-19 infection. Departure - Departure Disposition: 01 Home, Self Care Clinical Impression: COVID-19 Prescriptions: Oxymetazoline HCl [Afrin] 15 ml NS Q6HR #15 ml guaiFENesin [Chest Congestion Relief] 100 mg PO DAILY #50 ml predniSONE [Prednisone] 50 mg PO DAILY #5 tablet Albuterol Sulfate [Proair Hfa Inhaler] 1 - 2 puffs INH Q4H PRN #1 gm PRN Reason: Shortness Of Air/Wheezing Comments: Thank you for allowing us to care for you for you today at [facility]. Today in the emergency department he tested positive for COVID-19. I have sent some prescriptions to your preferred pharmacy, [facility] in [place] to help with your symptoms. Please quarantine at home per current CDC guidelines. Please drink plenty fluids and get plenty of rest. If it anytime you have any new or worsening symptoms, particularly if you develop any worsening shortness of breath, chest pressure or chest pain please return to the emergency department immediately for further evaluation and treatment.
[2022-05-10] MEDS ORDERED: DEXAMETHASONE 10 MG/ML VIAL PO STA (07:58)
[2022-05-10] MEDS ORDERED: IPRATROPIUM/ALBUTEROL 3 ML NEB INH STA (07:58)
[2022-05-10] MEDS ORDERED: CHERRY SYRUP 10 ML UDC PO ONE (07:59)
--- NOTE | 2022-05-10 08:29 | XRAY Report ---
PROCEDURE: Chest 2 View X-Ray INDICATIONS: cough TECHNIQUE: 2 view(s) of the chest. COMPARISON: 12/28/2017 FINDINGS: Surgical changes and devices: None. Overlying EKG wires. Lungs and pleura: No pleural effusions or pneumothorax. Lungs are clear. Mediastinum: Mediastinal contours are normal. Heart size is normal. Bones and chest wall: No suspicious bony abnormalities. Soft tissues appear unremarkable. IMPRESSION: No evidence of an acute cardiopulmonary abnormality. Reviewed by: Houston Coates DO on 05/10/2022 7:27 AM RODNEY Approved by: Houston Coates DO on 05/10/2022 7:27 AM RODNEY Station ID: [id number]
[2022-05-10 08:42] LABS: BASOPHILS % (AUTO) 0.1 %; EOSINOPHILS # (AUTO) 0.1 10^3/uL (0.0-0.7); EOSINOPHILS % (AUTO) 1.9 %; HCT - HEMATOCRIT 44.1 % (42.0-52.0); LYMPHOCYTES # (AUTO) 1.5 10^3/uL (1.5-3.5); LYMPHOCYTES % (AUTO) 20.6 %; MEAN CORPUSCULAR HEMOGLOBIN 29.8 pg (27.0-31.0); MEAN CORPUSCULAR VOLUME 87.5 fL (80.0-94.0); MEAN PLATELET VOLUME 9.8 fL (7.4-11.4); MONOCYTES # (AUTO) 0.6 10^3/uL (0.0-1.0); MONOCYTES % (AUTO) 7.7 %; NEUTROPHILS # (AUTO) 5.2 10^3/uL (1.5-6.6); NEUTROPHILS % (AUTO) 69.2 %; PLT - PLATELET COUNT 147 10^3/uL (130-450); RED BLOOD COUNT 5.04 10^6/uL (4.70-6.10); RED CELL DISTRIBUTION WIDTH 12.2 % (12.0-15.0); WHITE BLOOD COUNT 7.5 x10^3/uL (4.8-10.8)
[2022-05-10 08:57] LABS: ALBUMIN/GLOBULIN RATIO 1.3 (1.0-2.2); BILIRUBIN,TOTAL 0.4 mg/dL (0.2-1.0); CALCIUM 9.2 mg/dL (8.5-10.3); CREATININE 0.8 mg/dL (0.6-1.2); POTASSIUM 3.6 mmol/L (3.5-5.0); TOTAL PROTEIN 7.2 g/dL (6.7-8.2)
[2022-05-10 09:59] LABS: B. PARAPERTUSSIS- RESP PCR PAN NOT DETECTED; B. PERTUSSIS- RESP PCR PANEL NOT DETECTED; C. PNEUMONIAE- RESP PCR PANEL NOT DETECTED; CORONAVIRUS 229E-RESP PCR NOT DETECTED; CORONAVIRUS HKU1-RESP PCR NOT DETECTED; CORONAVIRUS NL63-RESP PCR NOT DETECTED; CORONAVIRUS OC43-RESP PCR NOT DETECTED; HUMAN METAPNEUMOVIRUS NOT DETECTED; INFLUENZA A- RESP PCR PANEL NOT DETECTED; INFLUENZA B - RESP PCR PANEL NOT DETECTED; M. PNEUMONIAE- RESP PCR PANEL NOT DETECTED; PARAINFLUENZA VIRUS 1 NOT DETECTED; PARAINFLUENZA VIRUS 2 NOT DETECTED; PARAINFLUENZA VIRUS 3 NOT DETECTED; PARAINFLUENZA VIRUS 4 NOT DETECTED; RHINOVIRUS/ENTEROVIRUS NOT DETECTED; RSV- RESP PCR PANEL NOT DETECTED
[2022-05-10 10:01] LABS: SARS-CoV-2 -RESP PCR PANEL DETECTED
[2022-05-10 10:19] VITALS: BP 135/70
== END 2022-05-10 10:44 | disposition home or self-care (01) ==
LOC: ED 06:37
DX: U07.1 COVID-19 (principal); I10 Essential (primary) hypertension; F17.290 Nicotine dependence, other tobacco product, uncomplicated
CPT/HCPCS: 36415; 71046; 80053; 83690; 83880; 84484; 85025; 87633; 93005; 94640; 99283; 99284; A9270

== ENCOUNTER 2022-05-16 07:30 | Emergency (ER) | payer MEDICAID ==
[2022-05-16 07:53] VITALS: BP 161/97
--- NOTE | 2022-05-16 08:13 | ED Physician Documentation ---
History of Present Illness - Stated complaint Stated Complaint: C+, COUGH/CONGESTION - Chief complaint Chief Complaint: Resp - History obtained from History obtained from: Patient - History of Present Illness Timing: How many weeks ago (1) Pain level max: 5 Pain level now: 3 - Additonal information Additional information: 51-year-old male, unvaccinated for COVID presents to the emergency department stating that he tested positive for COVID about 1 week ago. Has continued to have cough. No fevers. He states he feels mildly short of breath at times. Occasionally has right-sided chest pain with coughing. Worse with coughing, better with rest. No fevers. No chills. No vomiting. Review of Systems Constitutional: denies: Fever, Chills Nose: reports: Rhinorrhea / runny nose, Congestion Respiratory: reports: Cough (productive) GI: denies: Nausea, Vomiting, Diarrhea Skin: denies: Rash Musculoskeletal: denies: Neck pain, Back pain Neurologic: denies: Headache PD PAST MEDICAL HISTORY - Past Medical History Cardiovascular: Hypertension, Other Respiratory: Shortness of breath Endocrine/Autoimmune: None GI: GERD : Kidney stones HEENT: Other Psych: Depression, Anxiety, Other Musculoskeletal: Other Derm: Other - Past Surgical History Past Surgical History: Yes General: Colonoscopy Ortho: Spine surgery Cardiovascular: Cardiac catheterization - Present Medications Home Medications: Ambulatory Orders Medication Instructions Recorded Confirmed Azithromycin [Zithromax] 250 mg PO DAILY #6 tablet 03/27/18 Cholecalciferol [Vitamin D3] unit 03/27/18 Maoi 03/27/18 hydroCHLOROthiazide mg PO 03/27/18 [Hydrochlorothiazide] Albuterol Sulfate [Proair Hfa 1 - 2 puffs INH Q4H PRN #1 gm 05/10/22 Inhaler] Oxymetazoline HCl [Afrin] 15 ml NS Q6HR #15 ml 05/10/22 guaiFENesin [Chest Congestion 100 mg PO DAILY #50 ml 05/10/22 Relief] predniSONE [Prednisone] 50 mg PO DAILY #5 tablet 05/10/22 - Allergies Allergies/Adverse Reactions: Allergies Allergy/AdvReac Type Severity Reaction Status Date / Time diphenhydramine Allergy Unknown Verified 05/16/22 07:48 gabapentin Allergy Unknown Verified 05/16/22 07:48 NSAIDS (Non-Steroidal AdvReac Unknown Verified 05/16/22 07:48 Anti-Inflamma - Social History Does the pt smoke?: No Smoking Status: Never smoker Does the pt drink ETOH?: No Does the pt have substance abuse?: No - Immunizations Immunizations are current?: Yes - POLST Patient has POLST: Yes PD ED PE NORMAL - Vitals Vital signs reviewed: Yes - General General: Alert and oriented X 3, No acute distress - HEENT HEENT: PERRL, Moist mucous membranes - Neck Neck: Supple, no meningeal sign - Cardiac Cardiac: RRR, Strong equal pulses - Respiratory Respiratory: No respiratory distress, Clear bilaterally - Abdomen Abdomen: Soft, Non tender, Non distended - Derm Derm: Warm and dry - Extremities Extremities: No edema - Neuro Neuro: Alert and oriented X 3 - Psych Psych: Normal mood, Normal affect Results - Vitals Vitals: Vital Signs - 24 hr 05/16/22 07:49 Temperature 37.3 C Heart Rate 72 Respiratory 21 Rate Blood Pressure 161/97 H O2 Saturation 98 Oxygen O2 Source Room air PD MEDICAL DECISION MAKING - ED course Complexity details: considered differential, d/w patient ED course: 51-year-old male with known COVID. Illness has been going on too long for antivirals. He has been sick for about 10 to 11 days now. No hypoxia. No respiratory distress. No indication for x-ray. Patient does not want any medications for home. Patient will follow up with his doctor for further care. Patient counseled regarding signs and symptoms for which I believe and urgent re-evaluation would be necessary. Patient with good understanding of and agreement to plan and is comfortable going home at this time This document was made in part using voice recognition software. While efforts are made to proofread this document, sound alike and grammatical errors may occur. Departure - Departure Disposition: 01 Home, Self Care Clinical Impression: COVID-19 Condition: Good Instructions: ED URI Viral Follow-Up: Mathieu Souza MD [Primary Care Provider] - Comments: Drink plenty of fluids, rest. Return if you worsen. Follow-up with your doctor for further care.
== END 2022-05-16 08:25 | disposition home or self-care (01) ==
LOC: ED 07:30
DX: U07.1 COVID-19 (principal); I10 Essential (primary) hypertension
CPT/HCPCS: 99281; 99282

== ENCOUNTER 2023-07-15 08:58 | Emergency (ER) | payer MEDICAID ==
[2023-07-15] MEDS ORDERED: traMADol 50 MG TABLET PO STA (09:54)
--- NOTE | 2023-07-15 09:57 | ED Physician Documentation ---
History of Present Illness - Stated complaint Stated Complaint: BACK PX - Chief complaint Chief Complaint: General - History obtained from History obtained from: Patient - Additonal information Additional information: Patient is a 52-year-old male who is established with chronic pain clinic in [place] and reports a diagnosis of chronic regional pain syndrome presenting for a dose a of tramadol. Patient states that he gets a weekly prescription of tramadol filled at [facility] in [place] but recently there has been an issue with the pharmacist and they are currently refusing to fill his prescription. 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 He states that there is an investigation in process regarding the pharmacist in [facility] and that his pain management provider is aware of these issues. Patient states that he is having a CRPS flareup this morning with vague areas of pain and this feels similar to an episode of his chronic pain flaring up. Review of Systems Constitutional: denies: Fever Cardiac: denies: Chest pain / pressure Respiratory: denies: Dyspnea GI: denies: Abdominal Pain Neurologic: denies: Headache PD PAST MEDICAL HISTORY - Past Medical History Past Medical History: Yes Cardiovascular: Hypertension, Other Respiratory: Shortness of breath Endocrine/Autoimmune: None GI: GERD : Kidney stones HEENT: Other Psych: Depression, Anxiety, Other Musculoskeletal: Other Derm: Other - Past Surgical History Past Surgical History: Yes General: Colonoscopy Ortho: Spine surgery Cardiovascular: Cardiac catheterization - Present Medications Home Medications: Ambulatory Orders Medication Instructions Recorded Confirmed Azithromycin [Zithromax] 250 mg PO DAILY #6 tablet 03/27/18 Cholecalciferol [Vitamin D3] unit 03/27/18 Maoi 03/27/18 hydroCHLOROthiazide mg PO 03/27/18 [Hydrochlorothiazide] Albuterol Sulfate [Proair Hfa 1 - 2 puffs INH Q4H PRN #1 gm 05/10/22 Inhaler] Oxymetazoline HCl [Afrin] 15 ml NS Q6HR #15 ml 05/10/22 guaiFENesin [Chest Congestion 100 mg PO DAILY #50 ml 05/10/22 Relief] predniSONE [Prednisone] 50 mg PO DAILY #5 tablet 05/10/22 - Allergies Allergies/Adverse Reactions: Allergies Allergy/AdvReac Type Severity Reaction Status Date / Time diphenhydramine Allergy Unknown Verified 05/16/22 07:48 gabapentin Allergy Unknown Verified 05/16/22 07:48 NSAIDS (Non-Steroidal AdvReac Unknown Verified 05/16/22 07:48 Anti-Inflamma - Social History Does the pt smoke?: No Smoking Status: Never smoker Does the pt drink ETOH?: No Does the pt have substance abuse?: No - Immunizations Immunizations are current?: Yes - POLST Patient has POLST: Yes PD ED PE NORMAL - General General: Alert and oriented X 3, No acute distress, Well developed/nourished - HEENT HEENT: Atraumatic, Moist mucous membranes, Pharynx benign - Neck Neck: Supple, no meningeal sign - Cardiac Cardiac: RRR, No murmur - Respiratory Respiratory: No respiratory distress, Clear bilaterally - Abdomen Abdomen: Soft, Non tender - Derm Derm: Warm and dry - Extremities Extremities: No deformity - Neuro Neuro: Alert and oriented X 3, No motor deficit, Normal speech, Other (Steady gait) Results - Vitals Vitals: Vital Signs - 24 hr 07/15/23 07/15/23 09:01 10:01 Temperature 36 C L 36.2 C L Heart Rate 98 89 Respiratory 20 19 Rate Blood Pressure 157/102 H 144/89 H O2 Saturation 100 99 Oxygen O2 Source Room air PD Medical Decision Making - ED course ED course: Patient with a history of CRPS presenting for a dose of tramadol as he is having difficulty in getting the [facility] pharmacy in [place] to fill his prescription. On review of the FOOD SCIENCE PROFESSOR it appears that he does get his prescriptions weekly written by a provider at a pain clinic in [place]. He states that the pharmacist at [facility] is doing something illegal and that there is an active investigation but that they are currently not willing to fill his prescription and his provider is trying to figure out where he can get a prescription from. As he has not been to the emergency department for this before I have given him a one-time dose of his scheduled tramadol. However he understands that the emergency department cannot be regularly utilized for this reason and that he needs to work with his pain management provider to figure out an alternative solution. Patient denies any new or worsening symptoms today. Counseled on concerning symptoms to return for. Departure - Departure Disposition: 01 Home, Self Care Clinical Impression: Chronic pain Condition: Stable Instructions: ED Chronic Pain Management Comments: Please continue to follow-up with your chronic pain management provider (Marcelo Nuñez) Regarding getting your tramadol prescriptions filled. The emergency department is not able to dispense medications in the situation. We have given you a one-time dose today but this cannot be a recurrent expectation. Forms: PCP List Discharge Date/Time: 07/15/23 10:01
[2023-07-15 11:05] VITALS: BP 144/89; O2SAT 99
== END 2023-07-15 10:01 | disposition home or self-care (01) ==
LOC: ED 08:58
DX: G89.29 Other chronic pain (principal); I10 Essential (primary) hypertension; Z79.899 Other long term (current) drug therapy
CPT/HCPCS: 99282; 99283; A9270